=== PATIENT | female | born 1980 | race Caucasian/White ===

== ENCOUNTER 2017-11-25 21:29 | Emergency (ER) | payer OTHER ==
[~2017-11-25] VITALS: Ht 177.8 cm; Wt 79.4 kg
[~2017-11-25 21:29] MED LIST: DOXYCYCLINE 10100 M1 PO; HYDROXYZINE HCL25 M1 PO; MEDROLDOSEPACK PO
[2017-11-25] MEDS ORDERED: [UNRECOGNIZED DRUG - REMARK] (21:43)
[2017-11-25] MEDS ORDERED: IBUPROFEN 800800 MG PO (22:35)
[2017-11-25] MEDS ORDERED: TIZANIDINE HCL 22 MG PO (22:35)
[2017-11-25 22:50] VITALS: BP 152/87
== END 2017-11-25 22:51 | disposition home or self-care (01) ==
LOC: M.ERS 21:29
DX: S16.1XXA Strain of muscle, fascia and tendon at neck level, initial encounter (principal); Z88.6 Allergy status to analgesic agent; V53.5XXA Driver of pick-up truck or van injured in collision with car, pick-up truck or van in traffic accident, initial encounter; Y93.I9 Activity, other involving external motion; Y92.89 Other specified places as the place of occurrence of the external cause; Y99.8 Other external cause status

== ENCOUNTER → 2018-11-03 | Outpatient (CLI) | payer OTHER ==
[~2018-11-03] MED LIST changes: +IBUPROFEN 800800 MG PO; +TIZANIDINE HCL 22 MG PO; +[UNRECOGNIZED DRUG - REMARK]
== END ==
LOC: M.ULTRA 10-30 08:53
DX: Z12.31 Encounter for screening mammogram for malignant neoplasm of breast (principal); N88.8 Other specified noninflammatory disorders of cervix uteri

== ENCOUNTER 2019-01-13 20:36 | Emergency (ER) | payer OTHER ==
[~2019-01-13] VITALS: Ht 177.8 cm; Wt 74.8 kg
[2019-01-13] MEDS ORDERED: TRAMADOL 50 MG50 MG PO (20:44)
[2019-01-13] MEDS ORDERED: ZANTAC 150MG T150 MG PO (20:45)
[2019-01-13 21:19] LABS: ABSOLUTE EOSINOPHILS 0.1 thou/uL (0.0-0.7); ABSOLUTE LYMPHOCYTES 2.4 thou/uL (0.8-5.3); ABSOLUTE MONOCYTES 0.4 thou/uL (0.0-1.2); BASOPHILS 0.6 %; EOSINOPHILS 1.9 %; HEMATOCRIT 39.4 % (37.0-47.0); HEMOGLOBIN 13.2 gm/dL (12.0-15.0); LYMPHOCYTES 34.6 %; MCHC 33.5 g/dL (28.0-37.0); MCV 83.4 fL (80.0-100.0); MONOCYTES 5.7 %; MPV 10.5 fl. (7.2-11.1); NUCLEATED RBCS 0 /100WBC; PLATELET COUNT* 201 thou/uL (150-400); POLYS 57.2 %; RBC 4.73 mil/uL (4.20-5.00); RDW-CV 14.9 % (10.5-14.5)
[2019-01-13 21:26] LABS: ANION GAP 11 mmol/L (7-16); BUN 14 mg/dL (7-18); CALCIUM 8.9 mg/dL (8.5-10.1); CHLORIDE 104 mmol/L (98-107); CO2 26 mmol/L (21-32); CREATININE 0.8 mg/dL (0.6-1.3); GLUCOSE 100 mg/dL (70-99); POTASSIUM 3.8 mmol/L (3.5-5.1); SODIUM 141 mmol/L (136-145)
[2019-01-13 21:32] LABS: URINE BILIRUBIN NEGATIVE (Negative); URINE BLOOD NEGATIVE (Negative); URINE CLARITY CLEAR; URINE COLOR YELLOW; URINE GLUCOSE-RANDOM NEGATIVE (Negative); URINE KETONES NEGATIVE (Negative); URINE LEUKOCYTES-REFLEX NEGATIVE (Negative); URINE NITRITE-REFLEX NEGATIVE (Negative); URINE PROTEIN NEGATIVE (Negative); URINE SPECIFIC GRAVITY >= 1.030 (1.005-1.030); URINE UROBILINOGEN 0.2 E.U./dl (0.2-1.0)
[2019-01-13 21:39] LABS: ALBUMIN 4.2 g/dL (3.4-5.0); ALKALINE PHOSPHATASE 84 U/L (46-116); SGOT 20 U/L (15-37); SGPT 31 U/L (30-65); TOTAL BILIRUBIN 0.2 mg/dL (<0.1-1.0); TOTAL PROTEIN 7.8 g/dL (6.4-8.2); TROPONIN-I LEVEL <0.06 ng/mL (<0.06)
[2019-01-13 22:49] VITALS: BP 149/97
[2019-01-13 23:20] LABS: AMP/METHAMP Negative (Negative); BARBITURATES Negative (Negative); BENZODIAZEPINES Negative (Negative); COCAINE Negative (Negative); METHADONE Negative (Negative); OPIATES Negative (Negative); PCP Negative (Negative); THC Negative (Negative)
--- NOTE | 2019-01-15 14:44 | EKG ---
[place] [address] ELECTROCARDIOGRAM REPORT Name: JAYCOB CAAL Room: [facility]#: [id number] Admission: 01/13/19 Attend Phys: Discharge: 01/13/19 Date of : 76 Report #: [id number] THIS REPORT FOR: //name// [facility] ED Test Date: 2019-01-13 Test Time: 21:17:46 Pat Name: JAYCOB CAAL Department: Room: Gender: F [employer] Operator: [place] : 1980 Requested By: Yasmani Williamson Order Number: [id number] MD: Geoffrey Gupta Measurements Intervals [place] Rate: 84 P: 3 FL: 136 QRS: -23 QRSD: 95 T: 24 QT: 394 QTc: 466 Interpretive Statements Sinus rhythm Borderline left axis deviation Abnormal R-wave progression, late transition Baseline wander in lead(s) V3 No previous ECG available for comparison Electronically Signed On 01-15-2019 14:44:02 CDT by Geoffery Gupta [email or web address] <ELECTRONICALLY SIGNED> By: Geoffrey Gupta MD, [facility] 01/15/19 1444 16 16 Geoffrey Gupta MD, FACC /EPI
== END 2019-01-13 22:49 | disposition home or self-care (01) ==
LOC: M.ERS 20:36
PROVIDERS: Physician Assistant
DX: R53.1 Weakness (principal); R42 Dizziness and giddiness; M79.7 Fibromyalgia; Z86.73 Personal history of transient ischemic attack (TIA), and cerebral infarction without residual deficits; Z88.6 Allergy status to analgesic agent; Z79.899 Other long term (current) drug therapy